=== PATIENT | male | born 1980 | race Caucasian/White ===

== ENCOUNTER → 2022-08-03 | Outpatient (CLI) | payer OTHER ==
--- NOTE | 2022-08-03 13:27 | DIREP ---
PROCEDURE:CHEST 2 VIEWS COMPARISON:None. INDICATIONS:Encounter for general adult medical examination without abnormal findings FINDINGS: LUNGS/PLEURA:No significant pulmonary parenchymal abnormalities. No effusions. VASCULATURE:Normal. Unremarkable pulmonary vasculature. CARDIAC:Normal. No cardiac silhouette abnormality or cardiomegaly. MEDIASTINUM:Normal. No visible mass or adenopathy. BONES:Normal. No fracture or visible bony lesion. OTHER:Negative. CONCLUSION:Normal examination. Dictated by: Adis Coe M.D. on 08/03/2022 at 01:25 PM
== END | disposition home or self-care (01) ==
LOC: RAD 12:54
PROVIDERS: ATTEND Nurse Practitioner
DX: Z00.00 Encounter for general adult medical examination without abnormal findings (principal)
CPT/HCPCS: 71046